=== PATIENT | female | born 1960 | race Caucasian/White ===

== ENCOUNTER 2019-05-03 08:38 | Outpatient (CLI) | payer OTHER ==
--- NOTE | 2019-05-04 11:41 | NM ---
NUCLEAR MEDICINE THYROID SCAN AND UPTAKE STUDY: Date: 05/04/2019 HISTORY: 59-year-old female with ICD-10: E05.90, thyrotoxicosis unspecified without thyrotoxic crisis or storm . TECHNIQUE: 251 uCi I-123 administered PO. 3 view thyroid scintigraphy obtained. 6 hour and 24 hour uptake studies performed. FINDINGS: There is homogeneous uptake of the left and right lobes of the thyroid gland without evidence of hot or cold nodules. 6 Hour Uptake: 39% (normal range is 6-18%) 24 Hour Uptake: 58% (normal range is 10-30%) IMPRESSION: Evidence for hyperthyroidism due to Graves' disease. POS: [facility]
== END 2019-05-03 08:39 | disposition home or self-care (01) ==
LOC: NM 08:38
PROVIDERS: ATTEND Internal Medicine Endocrinology, Diabetes & Metabolism
DX: E05.00 Thyrotoxicosis with diffuse goiter without thyrotoxic crisis or storm (principal); E03.9 Hypothyroidism, unspecified
CPT/HCPCS: 78014; A9516

== ENCOUNTER 2019-05-24 12:36 | Outpatient (CLI) | payer OTHER ==
--- NOTE | 2019-05-24 15:21 | NM ---
Exam: Iodine therapy for Graves' disease TECHNIQUE: Patient was administered 14.8 mCi I-131 orally. The nuclear mesenteric administered the ta blet and watch the patient swallowed the tablet. Instructions were given to the patient with regards to minimizing exposure to nontreated people. Patient understood the instructions. FINDINGS: Successful oral iodine tablet treatment for Graves' disease. IMPRESSION: As above
== END 2019-05-24 12:37 | disposition home or self-care (01) ==
LOC: NM 12:36
PROVIDERS: ATTEND Internal Medicine Endocrinology, Diabetes & Metabolism
DX: E05.00 Thyrotoxicosis with diffuse goiter without thyrotoxic crisis or storm (principal)
CPT/HCPCS: 79005; A9517